=== PATIENT | female | born 1990 | race Caucasian/White ===

== ENCOUNTER 2017-05-10 01:16 | Emergency (ER) | payer OTHER ==
[2017-05-10 02:07] VITALS: BMI 22.7
[2017-05-10 02:11] VITALS: RESP 16; TEMP 98.5
[2017-05-10] MEDS ORDERED: Lidocaine 1% Inj (20ml) IJ STA (02:41)
--- NOTE | 2017-05-10 02:41 | ED PDOC ---
Arrival/HPI - General Chief Complaint: Female Genitourinary Time Seen by Provider: 05/10/17 02:35 Historian: Patient - History of Present Illness Narrative History of Present Illness (Text): 05/10/17 02:43 A 26 year old female, who denies any past medical history, presents to the emergency department complaining of a swollen and painful "pimple" in her vaginal area the past two days. Patient reports painful to walk. Patient denies any other complaints at this time. Time/Duration: Other (2 days) Symptom Onset: Sudden Symptom Course: Unchanged Activities at Onset: Rest Context: Home Past Medical History - Provider Review Nursing Documentation Reviewed: Yes - Psychiatric Hx Psychophysiologic Disorder: No Hx Substance Use: No - Surgical History Hx Section: Yes (x2) - Anesthesia Hx Anesthesia: Yes Hx Anesthesia Reactions: No Hx Malignant Hyperthermia: No Family/Social History - Physician Review Nursing Documentation Reviewed: Yes Family/Social History: No Known Family HX Smoking Status: Never Smoked Hx Alcohol Use: No Hx Substance Use: No Allergies/Home Meds Allergies/Adverse Reactions: Allergies No Known Allergies Allergy (Verified 05/10/17 02:07) Review of Systems - Physician Review All systems were reviewed & negative as marked: Yes - Review of Systems Constitutional: absent: Fevers Skin: Other (swollen and painful pimple on labia) Neurological: absent: Headache Physical Exam Vital Signs Reviewed: Yes Vital Signs Temp Pulse Resp BP Pulse Ox 05/10/17 03:50 85 16 115/70 97 05/10/17 02:09 98.5 F 90 16 104/73 100 Temperature: Afebrile Blood Pressure: Normal Pulse: Regular Respiratory Rate: Normal Appearance: Positive for: Well-Appearing, Non-Toxic, Comfortable Pain Distress: None Mental Status: Positive for: Alert and Oriented X 3 - Systems Exam Head: Present: Atraumatic, Normocephalic Pupils: Present: PERRL Extroacular Muscles: Present: EOMI Conjunctiva: Present: Normal Mouth: Present: Moist Mucous Membranes Neck: Present: Normal Range of Motion Respiratory/Chest: Present: Clear to Auscultation, Good Air Exchange. No: Respiratory Distress, Accessory Muscle Use Cardiovascular: Present: Regular Rate and Rhythm, Normal S1, S2. No: Murmurs Abdomen: Present: Normal Bowel Sounds. No: Tenderness, Distention, Peritoneal Signs Genitourinary/Pelvic Exam: Present: Other (swelling of left labia, small amount of purulent drainage seen (jani clark present)) Back: Present: Normal Inspection Upper Extremity: Present: Normal Inspection. No: Cyanosis, Edema Lower Extremity: Present: Normal Inspection. No: Edema Neurological: Present: GCS=15, CN II-XII Intact, Speech Normal Skin: Present: Warm, Dry, Normal Color. No: Rashes Psychiatric: Present: Alert, Oriented x 3, Normal Insight, Normal Concentration Medical Decision Making ED Course and Treatment: 05/10/17 03:25 Procedure: Incision & Drainage Performed by the emergency provider Indication: Abscess Location: labia Preparation:. Local infiltration of Lidocaine 1% was used for anesthesia. Procedure: The most fluctuant portion of the abscess was incised with a #11 scalpel. a small amnt of purulent drainage was expressed. Post-Procedure: On exam the abscess is less fluctuant. The patient tolerated the procedure well, and there were no complications. Patient feels better and is in no acute distress. Patient in agreement with plan to be discharged home. Patient is stable for discharge. Patient was instructed to follow up with physician or return if symptoms worsen or new concerning symptoms arise. - Medication Orders Current Medication Orders: Discontinued Medications Clindamycin HCl (Cleocin) 300 mg PO STAT STA PRN Reason: Protocol Stop: 05/10/17 03:24 Last Admin: 05/10/17 03:42 Dose: 300 mg Ibuprofen (Motrin Tab) 600 mg PO STAT STA Stop: 05/10/17 03:24 Last Admin: 05/10/17 03:42 Dose: 600 mg Lidocaine HCl (Lidocaine 1% (20ml)) 20 ml IJ STAT STA Stop: 05/10/17 02:42 Last Admin: 05/10/17 03:34 Dose: 20 ml Comments: given by anupama Yu Statement The provider has reviewed the documentation as recorded by the Jani Back Provider Scribe Attestation: All medical record entries made by the Scribarash were at my direction and personally dictated by me. I have reviewed the chart and agree that the record accurately reflects my personal performance of the history, physical exam, medical decision making, and the department course for this patient. I have also personally directed, reviewed, and agree with the discharge instructions and disposition. Disposition/Present on Arrival - Present on Arrival Any Indicators Present on Arrival: No History of DVT/PE: No History of Uncontrolled Diabetes: No Urinary Catheter: No History of Decub. Ulcer: No History Surgical Site Infection Following: None - Disposition Have Diagnosis and Disposition been Completed?: Yes Diagnosis: Infection of labia Disposition: HOME/ ROUTINE Disposition Time: 03:51 Condition: STABLE Additional Instructions: Please follow up with an OBGYN doctor this week. Return to the ER for any worsening pain, swelling, drainage, fever, or for any other concerns. Prescriptions: Clindamycin [Cleocin] 300 mg PO QID #40 cap Ibuprofen [Motrin Tab] 600 mg PO Q6H PRN #8 tab PRN Reason: Pain, Moderate (4-7) Forms: [facility] (Slovak)
[2017-05-10 03:50] VITALS: BP 115/70; PULSE 85; O2SAT 97
== END 2017-05-10 03:51 | disposition home or self-care (01) ==
LOC: ED 01:16
DX: N76.2 Acute vulvitis (principal)